=== PATIENT | female | born 1985 | race Caucasian/White ===

== ENCOUNTER → 2017-03-15 | Outpatient (CLI) | payer OTHER ==
[2015-08-31 17:23] VITALS: BP 103/71
--- NOTE | 2017-03-15 15:55 | RAD ---
3 views of the lumbar spine 03/15/2017 Indication: Low back pain Comparison study: None Findings: No evidence of acute fracture or alignment abnormality is identified. Vertebral body heights and disc spaces are relatively preserved. No evidence of spondylolysis or spondylolisthesis is identified. No acute paraspinal soft tissue abnormalities are identified. Impression: No radiographic evidence of acute fracture or alignment abnormality lumbar spine
== END | disposition home or self-care (01) ==
LOC: DXRADRC 15:36
PROVIDERS: ATTEND General Practice
DX: M54.42 Lumbago with sciatica, left side (principal)
CPT/HCPCS: 72100

== ENCOUNTER 2018-04-04 19:24 | Emergency (ER) | payer OTHER ==
[~2018-04-04] VITALS: Ht 177.8 cm; Wt 100.0 kg
[2018-04-04] MEDS ORDERED: SULF1TAB24 PO (20:03)
[2018-04-04 20:04] VITALS: BP 120/72
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
== END 2018-04-04 20:21 | disposition home or self-care (01) ==
LOC: ER 19:24
DX: S00.81XA Abrasion of other part of head, initial encounter (principal); W50.4XXA Accidental scratch by another person, initial encounter; Y93.89 Activity, other specified; Y92.89 Other specified places as the place of occurrence of the external cause; Y99.0 Civilian activity done for income or pay
CPT/HCPCS: 99283

== ENCOUNTER 2018-10-24 09:34 | Emergency (ER) | payer BC, OTHER ==
[~2018-10-24] VITALS: Ht 177.8 cm; Wt 83.0 kg
[~2018-10-24 09:34] MED LIST: SULF1TAB24 PO
[2018-10-24 09:40] VITALS: BP 107/72
[2018-10-24] MEDS ORDERED: HYDR25TA PO (10:02)
[2018-10-24] MEDS ORDERED: PRED50TA PO (10:02)
[2018-10-24] MEDS ORDERED: MELO7.5T29 PO (10:02)
--- NOTE | 2018-10-24 10:03 | PHYS DOC ---
Past History Past Medical History: No Pertinent History Past Surgical History: No Surgical History Smoking: Non-smoker Alcohol Use: None Drug Use: None Adult General Chief Complaint Chief Complaint: SKIN PROBLEM HPI HPI Patient is a 33-year-old female presents with bilateral hand painful nodules that started this morning prior to work. She works as a nurse in the hospital. She denies any new soaps lotions skin creams detergents or any other identifiable triggers for this. Denies any fever. Denies any oral lesions. Denies any lesions on her feet. Denies any trauma. Reports that they are painful but has not taken any medicine for the pain. Discomfort is mild to moderate in intensity.[] Review of Systems Review of Systems Constitutional: Denies fever or chills [] Eyes: Denies change in visual acuity, redness, or eye pain [] HENT: Denies nasal congestion or sore throat [] Respiratory: Denies cough or shortness of breath [] Cardiovascular: No chest pain or palpitations[] GI: Denies abdominal pain, nausea, vomiting, bloody stools or diarrhea [] : Denies dysuria or hematuria [] Musculoskeletal: Denies back pain or joint pain [] Integument: See history of present illness[] Neurologic: Denies headache, focal weakness or sensory changes [] Endocrine: Denies polyuria or polydipsia [] All other systems were reviewed and found to be within normal limits, except as documented in this note. Allergies Allergies Allergies Coded Allergies Type Severity Reaction Last Updated Verified No Known Drug Allergies 08/31/15 No Physical Exam Physical Exam Constitutional: Well developed, well nourished, no acute distress, non-toxic appearance. [] HENT: Normocephalic, atraumatic, bilateral external ears normal, oropharynx moist, no oral exudates, nose normal. [] Eyes: PERRLA, EOMI, conjunctiva normal, no discharge. [] Neck: Normal range of motion, no tenderness, supple, no stridor. [] Cardiovascular:Heart rate regular rhythm, no murmur [] Lungs & Thorax: Bilateral breath sounds clear to auscultation [] Abdomen: Not examined[] Skin: Warm, dry, multiple erythematous nodules on the palmar aspect of bilateral hands. There is no wrist involvement. No axillary lymphadenopathy. No oral lesions or feet lesions are noted. No petechiae. No ulcers.. [] Back: No tenderness, no CVA tenderness. [] Extremities: See skin exam. No tenderness, no cyanosis, no clubbing, ROM intact, no edema. [] Neurologic: Alert and oriented X 3, normal motor function, normal sensory function, no focal deficits noted. [] Psychologic: Affect normal, judgement normal, mood normal. [] EKG EKG [] Radiology/Procedures Radiology/Procedures [] Course & Med Decision Making Course & Med Decision Making Pertinent Labs and Imaging studies reviewed. (See chart for details) Medical decision making: There is no evidence of staph scalded skin syndrome, toxic epidermal necrolysis, Mckee-Justen syndrome, petechiae, or [place] spotted fever. This may be gevg-qgsw-ial-mouth disease without the additional sequela of oral or foot lesions and no fever. Will start outpatient management with anti-inflammatories, antihistamines as well as pain management.[] Dragon Disclaimer Dragon Disclaimer This electronic medical record was generated, in whole or in part, using a voice recognition dictation system. Departure Departure: Impression: Primary Impression: Rash of hands Disposition: HOME, SELF-CARE Condition: IMPROVED Referrals: TERESA DENNIS DO (PCP) Follow-up in 2 days Patient Instructions: Rash Additional Instructions: Follow-up with your regular doctor in 2 days. Return to the ER if worsening pa in, difficulty breathing, purulent drainage, fever of more than 101, or any other concerns. Scripts Prednisone (PREDNISONE) 50 Mg Tablet 1 TAB PO DAILY for INFLAMMATION, #5 TAB Prov: ZOIE WHITE DO 10/24/18 Meloxicam (MELOXICAM) 7.5 Mg Tablet 7.5 MG PO DAILY for PAIN, #20 TAB Prov: ZOIE WHITE DO 10/24/18 Hydroxyzine Hcl (HYDROXYZINE HCL) 25 Mg Tablet 1 TAB PO TID for allergic reaction, #30 TAB Prov: ZOIE WHITE DO 10/24/18 ZOIE WHITE DO October 24, 2018 10:03
== END 2018-10-24 10:10 | disposition home or self-care (01) ==
LOC: ER 09:34
DX: R21 Rash and other nonspecific skin eruption (principal)
CPT/HCPCS: 99283

== ENCOUNTER 2019-08-12 19:00 | Emergency (ER) | payer OTHER, BC ==
[~2019-08-12] VITALS: Ht 177.8 cm; Wt 81.0 kg
[~2019-08-12 19:00] MED LIST changes: +HYDR25TA PO; +MELO7.5T29 PO; +PRED50TA PO
[2019-08-12 19:15] VITALS: BP 101/62
--- NOTE | 2019-08-12 19:47 | PHYS DOC ---
Past History Past Medical History: No Pertinent History Past Surgical History: No Surgical History Smoking: Non-smoker Alcohol Use: None Drug Use: None Adult General Chief Complaint Chief Complaint: FEVER HPI HPI 34-year-old female presents with fever and sore throat. The patient has had symptoms for about 2 days. Today has been getting worse all day. Her temperatures but up to 100.6. She took ibuprofen a couple hours prior to arrival. She states it is very difficult to swallow liquids and solids. 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 She denies nausea, vomiting, diarrhea, cough. No risk factors for COVID 19 Review of Systems Review of Systems Constitutional: Denies fever or chills [] Eyes: Denies change in visual acuity, redness, or eye pain [] HENT: Sore throat [] Respiratory: Denies cough or shortness of breath [] Cardiovascular: No additional information not addressed in HPI [] GI: Denies abdominal pain, nausea, vomiting, bloody stools or diarrhea [] : Denies dysuria or hematuria [] Musculoskeletal: Denies back pain or joint pain [] Integument: Denies rash or skin lesions [] Neurologic: Denies headache, focal weakness or sensory changes [] Endocrine: Denies polyuria or polydipsia [] All other systems were reviewed and found to be within normal limits, except as documented in this note. Allergies Allergies Allergies Coded Allergies Type Severity Reaction Last Updated Verified No Known Drug Allergies 08/31/15 No Physical Exam Physical Exam Constitutional: Well developed, well nourished, no acute distress, non-toxic appearance. [] HENT: Normocephalic, atraumatic, bilateral external ears normal, oropharynx erythematous with minimal exudates, nose normal. [] Eyes: PERRLA, EOMI, conjunctiva normal, no discharge. [] Neck: Normal range of motion, no tenderness, supple, no stridor. [] Cardiovascular:Heart rate regular rhythm, no murmur [] Lungs & Thorax: Bilateral breath sounds clear to auscultation [] Abdomen: Bowel sounds normal, soft, no tenderness, no masses, no pulsatile masses. [] Skin: Warm, dry, no erythema, no rash. [] Back: No tenderness, no CVA tenderness. [] Extremities: No tenderness, no cyanosis, no clubbing, ROM intact, no edema. [] Neurologic: Alert and oriented X 3, normal motor function, normal sensory function, no focal deficits noted. [] Psychologic: Affect normal, judgement normal, mood normal. [] EKG EKG [] Radiology/Procedures Radiology/Procedures [] Course & Med Decision Making Course & Med Decision Making Pertinent Labs and Imaging studies reviewed. (See chart for details) The patient is positive for strep. I'll treat her with Bicillin injection as this is the option she would prefer. She is stable for discharge at this time. [] Dragon Disclaimer Dragon Disclaimer This electronic medical record was generated, in whole or in part, using a voice recognition dictation system. Departure Departure: Impression: Primary Impression: Strep pharyngitis Disposition: HOME, SELF-CARE Condition: STABLE Referrals: TERESA DENNIS DO (PCP) Patient Instructions: Strep Throat, [id number] CHRISSIE DURAN DO Aug 12, 2019 19:47
[2019-08-12] MEDS ORDERED: PENICILLIN G BENZATHINE LA 1,200,000 UNIT/2 ML DISP.SYRIN. IM ONE (20:00)
[2019-08-12 20:10] LABS: INFLUENZA A PATIENT NEGATIVE (NEGATIVE); INFLUENZA B PATIENT NEGATIVE (NEGATIVE)
== END 2019-08-12 20:18 | disposition home or self-care (01) ==
LOC: ER 19:00
DX: R50.9 Fever, unspecified (principal); J02.0 Streptococcal pharyngitis; B95.0 Streptococcus, group A, as the cause of diseases classified elsewhere
CPT/HCPCS: 87804; 87880; 96372; 99283; J0561

== ENCOUNTER → 2019-09-12 | Outpatient (CLI) | payer OTHER | END | disposition home or self-care (01) | LOC: LAB 11:00 | PROVIDERS: ATTEND Internal Medicine Cardiovascular Disease | DX: Z20.828 Contact with and (suspected) exposure to other viral communicable diseases (principal) | CPT/HCPCS: 87635 ==

== ENCOUNTER → 2019-12-13 | Outpatient (CLI) | payer OTHER | LOC: LAB 17:26 | PROVIDERS: ATTEND Internal Medicine Cardiovascular Disease | DX: Z20.828 Contact with and (suspected) exposure to other viral communicable diseases (principal) | CPT/HCPCS: 36415; U0003-CS ==

== ENCOUNTER → 2019-12-19 | Outpatient (CLI) | payer OTHER | LOC: LAB 12:13 | PROVIDERS: ATTEND Internal Medicine Cardiovascular Disease | DX: R05 Cough (principal); R06.03 Acute respiratory distress; Z20.828 Contact with and (suspected) exposure to other viral communicable diseases | CPT/HCPCS: 36415; U0003 ==

== ENCOUNTER → 2019-12-28 | Outpatient (CLI) | payer OTHER | END | disposition home or self-care (01) | LOC: LAB 06:16 | PROVIDERS: ATTEND Internal Medicine Cardiovascular Disease | DX: Z20.828 Contact with and (suspected) exposure to other viral communicable diseases (principal) | CPT/HCPCS: C9803; U0003; 36415 ==

== ENCOUNTER 2020-01-11 10:57 | Emergency (ER) | payer OTHER, BC ==
[~2020-01-11] VITALS: Ht 177.8 cm; Wt 81.0 kg
[2020-01-11 10:58] VITALS: BP 111/78
--- NOTE | 2020-01-11 11:22 | RAD ---
EXAM: CHEST 1 VIEW History: Chest pain COMPARISON: None available. TECHNIQUE: Single portable radiograph of the chest FINDINGS: The cardiac silhouette is unremarkable. Minimal bibasilar lung atelectasis or infiltrates. The costophrenic sulci are clear and well demarcated. IMPRESSION: Minimal bibasilar lung atelectasis or infiltrates. Electronically signed by: Mohsen Gimenez MD (01/11/2020 11:19 AM) [id number]
--- NOTE | 2020-01-11 11:34 | PHYS DOC ---
Past History Past Medical History: No Pertinent History Past Surgical History: No Surgical History Smoking: Non-smoker Alcohol Use: None Drug Use: None General Adult EDM: Chief Complaint: CHEST PAIN HPI: HPI: 34-year-old female past medical history is negative second for tobacco dependence, presents the ED with complaints of intermittent episodes of left- sided chest tightness and squeezing, lasting for less than 2 hours, for the past 2 weeks. Patient states that she gets jittery with this, sweaty and feels as if her heart rate fluctuates " like I'm running a marathon, sometimes it slows down." Father at 42 due to a massive heart attack. No family history of clotting disorders, connective tissue or aortic disease. Pt with no prior cardiac workup. Feels as if exertion and bring on the sxs. 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 Last menstrual period was 11 or 12 days ago. No associated syncope or cocaine or methamphetamine use. No recent URI, surgery/trauma or prolonged sitting. ROS: Denies associated fever, chills, cough, sore throat, dyspnea, orthopnea, hemoptysis, unilateral leg swelling, nausea, vomiting, diarrhea, abdominal pain, neck stiffness, headache, racing thoughts, anxiety or stress, lightheadedness, dizziness. Heart Score: HEART Score for Chest Pain: HEART Score for Chest Pain Response (Comments) Value History Slighlty/Non-Suspicious 0 ECG Normal 0 Age < 45 0 Risk Factors 1 or 2 Risk Factors 1 Troponin < Normal Limit 0 Total 1 Risk Factors: Risk Factors: DM, Current or recent (<one month) smoker, HTN, HLP, family history of CAD, obesity. Risk Scores: Score 0 - 3: 2.5% MACE over next 6 weeks - Discharge Home Score 4 - 6: 20.3% MACE over next 6 weeks - Admit for Clinical Observation Score 7 - 10: 72.7% MACE over next 6 weeks - Early Invasive Strategies Allergies: Allergies: Allergies Coded Allergies Type Severity Reaction Last Updated Verified No Known Drug Allergies 08/31/15 No Physical Exam: PE: Constitutional: Well developed, well nourished, no acute distress, non-toxic appearance. [] HENT: Normocephalic, atraumatic, bilateral external ears normal, oropharynx moist, no oral exudates, nose normal. [] Eyes: EOMI, conjunctiva normal, no discharge. [] Neck: Normal range of motion, no tenderness, supple, no stridor. [] Cardiovascular:Heart rate regular rhythm, no murmur [] Lungs & Thorax: Bilateral breath sounds clear to auscultation [] Abdomen: Bowel sounds normal, soft, no tenderness, no masses, no pulsatile masses. [] Skin: Warm, dry, no erythema, no rash. [] Back: No tenderness, no CVA tenderness. [] Extremities: No tenderness, no cyanosis, no clubbing, ROM intact, no edema. [] Neurologic: Alert and oriented X 3, normal motor function, normal sensory function, no focal deficits noted. [] Psychologic: Affect normal, judgement normal, mood normal, slightly anxious EKG: EKG: Sinus arrhythmia at 58 bpm, no axis deviation, normal intervals, T wave in version lead III, no ST elevations or ST depressions Radiology/Procedures: Radiology/Procedures: IMAGING REPORT Signed PATIENT: JOSH VENEGAS ACCOUNT: [id number] : 1985 LOCATION: ER AGE: 34 SEX: F EXAM STATUS: REG ER ORD. PHYSICIAN: RAYA RAGLAND DO REASON: cp PROCEDURE: PORTABLE CHEST 1V EXAM: CHEST 1 VIEW History: Chest pain COMPARISON: None available. TECHNIQUE: Single portable radiograph of the chest FINDINGS: The cardiac silhouette is unremarkable. Minimal bibasilar lung atelectasis or infiltrates. The costophrenic sulci are clear and well demarcated. IMPRESSION: Minimal bibasilar lung atelectasis or infiltrates. Electronically signed by: Mohsen Gimenez MD (01/11/2020 11:19 AM) [id number] DICTATED AND SIGNED BY: MOHSEN GIMENEZ MD DATE: 01/11/20 1119 CC: TERESA DENNIS DO; RAYA RAGLAND DO ~ Course & Med Decision Making: Course & Med Decision Making Pertinent Labs and Imaging studies reviewed. (See chart for details) Concern for chest pain and palpitations-sxs concerning for tachy/sunita syndrome vs sss vs svt, no h/o syncope or soa. Trop and d-dimer wnl. CXR with no acute process. Sinus arrhythmia on EKG. Patient asymptomatic during ED presentation. No associated syncope, confusion or dyspnea. Considered admission, pt perfers outpt management with strict ed return precautions for worsening cp, soa, confusion or syncope. Encouraged urgent outpatient follow-up with PMD and cardiology ([facility] Dr[facility]). Life-threatening processes were considered but are low suspicion at this time, given history and physical exam. All patient's questions were answered and pt was stable at time of discharge. Differential includes acute myocardial infarction, aortic dissection, congestive heart failure, esophageal injury including rupture, surgical abdomen, arrhythmia, cardiomyopathy, myocarditis, pericarditis, peptic ulcer disease, pneumomediastinum, pneumonia, pneumothorax, pulmonary embolus, unstable angina, rib fracture, contusion, pericardial tamponade or effusion, pulmonary contusion, HCOM, brugada, WPW, RVAD I spoken with the patient and her caregivers. I explained the patient's condition, diagnoses and treatment plan based on the information available to me at this time. I have answered the patient and her caregiver's questions and addressed any concerns. The patient and her caregivers have a good understanding of patient's diagnosis, condition and treatment plan as can be expected at this point. Vital signs have been stable. Patient's condition is stable and appropriate for discharge from the emergency department. Patient will pursue further outpatient evaluation with primary care physician or other designated or consulting physician as outlined in the discharge instructions. The patient and/or caregivers are agreeable to this plan of care and follow-up instructions have been explained in detail. The patient and/or caregivers have received these instructions in written form and have expressed an understanding of the discharge instructions. The patient and/or caregivers are aware that any significant change of condition or worsening of symptoms should prompt immediate return to this or the closest emergency department or call to 911. Shandra Disclaimer: Shandra Disclaimer: This electronic medical record was generated, in whole or in part, using a voice recognition dictation system. Departure Departure: Impression: Primary Impression: Chest pain Disposition: HOME/RESIDENCE PRIOR TO ADM Condition: STABLE Referrals: TERESA DENNIS DO (PCP) Patient Instructions: Chest Pain (Nonspecific), Sick Sinus Syndrome Additional Instructions: Walt Simms MD-cardiology [id number] [place] [address] Rosemarie Crow MD-family medicine [address] [facility], [facility], [place] [address] [place] [address] Justification of Admission: Justification of Admission: Justification of Admission Dx: N/A RAYA RAGLAND DO Jan 11, 2020 11:34
[2020-01-11 11:41] LABS: BASO % 1 % (0-3); EOS # 0.2 x10^3/uL (0.0-0.7); EOS % 4 % (0-3); HEMATOCRIT 40.4 % (36.0-47.0); HEMOGLOBIN 13.9 g/dL (12.0-15.5); LYMPH # 2.8 x10^3/uL (1.0-4.8); LYMPH % 46 % (24-48); MEAN CORPUSCULAR HEMOGLOBIN 32 pg (25-35); MEAN CORPUSCULAR HGB CONC 34 g/dL (31-37); MEAN CORPUSCULAR VOLUME 93 fL (79-100); MONO # 0.4 x10^3/uL (0.0-1.1); MONO % 6 % (0-9); NEUT # 2.6 x10^3uL (1.8-7.7); NEUT % 44 % (31-73); PLATELET COUNT 310 x10^3/uL (140-400); RED BLOOD COUNT 4.34 x10^6/uL (3.50-5.40); RED CELL DISTRIBUTION WIDTH 12.2 % (11.5-14.5); WHITE BLOOD COUNT 6.1 x10^3/uL (4.0-11.0)
[2020-01-11 11:50] LABS: CALCIUM 9.2 mg/dL (8.5-10.1); CREATININE 0.8 mg/dL (0.6-1.0); GFR 82.1; POTASSIUM 3.7 mmol/L (3.5-5.1)
[2020-01-11 11:51] LABS: PREG TEST PT QUAL NEGATIVE (NEG)
[2020-01-11 11:56] LABS: ALBUMIN 3.8 g/dL (3.4-5.0); TOTAL BILIRUBIN 0.2 mg/dL (0.2-1.0); TOTAL PROTEIN 7.6 g/dL (6.4-8.2)
--- NOTE | 2020-01-11 14:11 | EKG ---
[address] [address] Test Date: 2020-01-11 Test Time: 10:58:52 Pat Name: JOSH VENEGAS Department: Room: Gender: F [employer]: : 1985 Requested By: RAYA RAGLAND Order Number: [id number] Reading MD: Measurements Intervals [place] Rate: 58 P: 35 WA: 136 QRS: -1 QRSD: 88 T: 8 QT: 434 QTc: 430 Interpretive Statements SINUS ARRHYTHMIA LEFTWARD AXIS NO SPECIFIC ECG ABNORMALITIES RI6.02 No previous ECG available for comparison
== END 2020-01-11 12:32 | disposition home or self-care (01) ==
LOC: ER 10:57
DX: R07.89 Other chest pain (principal); F17.200 Nicotine dependence, unspecified, uncomplicated
CPT/HCPCS: 36415; 71045; 80053; 84484; 84703; 85025; 85379; 93005; 99285-25

== ENCOUNTER → 2020-01-31 | Outpatient (CLI) | payer OTHER ==
[2020-01-11 10:58] VITALS: BP 111/78
== END | disposition home or self-care (01) ==
LOC: LAB 06:25 → EEVIPCON 06:25
PROVIDERS: ATTEND Internal Medicine Cardiovascular Disease
DX: Z20.828 Contact with and (suspected) exposure to other viral communicable diseases (principal)
CPT/HCPCS: U0003-CS

== ENCOUNTER → 2020-02-13 | Outpatient (CLI) | payer OTHER | END | disposition home or self-care (01) | LOC: LAB 14:13 | PROVIDERS: ATTEND Internal Medicine Cardiovascular Disease | DX: Z20.828 Contact with and (suspected) exposure to other viral communicable diseases (principal) | CPT/HCPCS: U0003-CS ==

== ENCOUNTER → 2020-04-12 | Outpatient (CLI) | payer OTHER | LOC: LAB 09:27 | PROVIDERS: ATTEND Internal Medicine Cardiovascular Disease | DX: Z20.828 Contact with and (suspected) exposure to other viral communicable diseases (principal) | CPT/HCPCS: U0003 ==

== ENCOUNTER → 2020-04-26 | Outpatient (CLI) | payer OTHER | LOC: LAB 12:56 | PROVIDERS: ATTEND Internal Medicine Cardiovascular Disease | DX: R09.89 Other specified symptoms and signs involving the circulatory and respiratory systems (principal); R19.7 Diarrhea, unspecified; R53.81 Other malaise; R50.9 Fever, unspecified; Z20.828 Contact with and (suspected) exposure to other viral communicable diseases | CPT/HCPCS: U0003 ==

== ENCOUNTER → 2020-04-28 | Outpatient (CLI) | payer OTHER | LOC: LAB 17:18 | PROVIDERS: ATTEND Internal Medicine Cardiovascular Disease | DX: Z20.828 Contact with and (suspected) exposure to other viral communicable diseases (principal) | CPT/HCPCS: U0003 ==

== ENCOUNTER → 2020-05-05 | Outpatient (CLI) | payer OTHER | LOC: LAB 17:48 | PROVIDERS: ATTEND Internal Medicine Cardiovascular Disease | DX: Z20.828 Contact with and (suspected) exposure to other viral communicable diseases (principal) | CPT/HCPCS: U0003 ==

== ENCOUNTER → 2020-06-25 | Outpatient (CLI) | payer OTHER ==
[2020-06-25 14:24] LABS: BASO % 1 % (0-3); EOS # 0.2 x10^3/uL (0.0-0.7); EOS % 3 % (0-3); HEMATOCRIT 41.8 % (36.0-47.0); HEMOGLOBIN 13.9 g/dL (12.0-15.5); LYMPH # 2.8 x10^3/uL (1.0-4.8); LYMPH % 36 % (24-48); MEAN CORPUSCULAR HEMOGLOBIN 31 pg (25-35); MEAN CORPUSCULAR HGB CONC 33 g/dL (31-37); MEAN CORPUSCULAR VOLUME 94 fL (79-100); MONO # 0.3 x10^3/uL (0.0-1.1); MONO % 4 % (0-9); NEUT # 4.4 x10^3uL (1.8-7.7); NEUT % 57 % (31-73); PLATELET COUNT 333 x10^3/uL (140-400); RED BLOOD COUNT 4.44 x10^6/uL (3.50-5.40); RED CELL DISTRIBUTION WIDTH 12.8 % (11.5-14.5); WHITE BLOOD COUNT 7.8 x10^3/uL (4.0-11.0)
== END ==
LOC: LAB 13:54
PROVIDERS: ATTEND Obstetrics & Gynecology
DX: N92.0 Excessive and frequent menstruation with regular cycle (principal)
CPT/HCPCS: 36415; 84443; 85025

== ENCOUNTER → 2020-07-24 | Outpatient (CLI) | payer BC, OTHER ==
[2020-07-24 11:48] LABS: ALBUMIN 3.8 g/dL (3.4-5.0); CALCIUM 8.9 mg/dL (8.5-10.1); CREATININE 0.7 mg/dL (0.6-1.0); GFR 95.2; TOTAL BILIRUBIN 0.5 mg/dL (0.2-1.0); TOTAL PROTEIN 7.6 g/dL (6.4-8.2)
[2020-07-24 21:07] LABS: DHEA SO4 101.8 ug/dL (57.3-279.2); FSH 6.2 mIU/mL (.); PROGESTERONE 0.2 ng/mL (.); PROLACTIN 6.7 ng/mL (4.8-23.3)
[2020-07-25 03:07] LABS: HEMOGLOBIN A1C 5.5 % (4.8-5.6)
[2020-07-25 11:12] LABS: HOMOCYTSINE LEVEL 7.8 umol/L (0.0-14.5)
[2020-07-25 14:08] LABS: INSULIN LEVEL 12.6 uIU/mL (2.6-24.9)
[2020-07-26 12:08] LABS: ANA INTERP Negative (.)
== END ==
LOC: LAB 10:22
PROVIDERS: ATTEND Obstetrics & Gynecology
DX: N92.6 Irregular menstruation, unspecified (principal); N96 Recurrent pregnancy loss
CPT/HCPCS: 80053; 80061; 81241; 82627; 83001; 83002; 83036; 83090; 83525; 84144; 84146; 84402; 84403; 85384; 85730; 86038

== ENCOUNTER → 2020-08-05 | Outpatient (CLI) | payer OTHER ==
--- NOTE | 2020-08-05 16:31 | RAD ---
EXAM: Pelvic sonogram. HISTORY: Menorrhagia. Dysmenorrhea. TECHNIQUE: Transabdominal and transvaginal sonographic imaging of the pelvis was performed. COMPARISON: None. FINDINGS: The uterus measures 7.8 x 6.0 x 4.1 cm. The endometrial stripe measures 11 mm in thickness. The right ovary is normal in size and demonstrates normal blood flow. There is a 2.3 cm dominant rig ht ovarian follicle/follicular cyst. The left ovary is obscured due to bowel gas. No left adnexal mas s or cyst is seen. There are calcifications within the lower uterine segment. There is nabothian cyst within the cervix. There is a trace amount of fluid within the anterior cul-de-sac. IMPRESSION: 1. Obscured left ovary due to bowel gas. 2. 2.3 cm physiologic dominant right ovarian follicle/follicular cyst. 3. Normal endometrial stripe for the premenopausal status of patient. 4. Trace pelvic free fluid, within physiologic limits. Electronically signed by: Casi Louie MD (08/05/2020 4:29 PM) [id number]
== END ==
LOC: US 15:02
PROVIDERS: ATTEND Obstetrics & Gynecology
DX: N83.01 Follicular cyst of right ovary (principal); N88.8 Other specified noninflammatory disorders of cervix uteri; N92.0 Excessive and frequent menstruation with regular cycle; N92.6 Irregular menstruation, unspecified; N94.6 Dysmenorrhea, unspecified
CPT/HCPCS: 76830; 76856

== ENCOUNTER → 2020-09-10 | Outpatient (CLI) | payer OTHER | LOC: LAB 08:11 | PROVIDERS: ATTEND Obstetrics & Gynecology | DX: N92.6 Irregular menstruation, unspecified (principal) | CPT/HCPCS: 36415; 84144 ==

== ENCOUNTER → 2020-10-14 | Outpatient (CLI) | payer OTHER | LOC: LAB 08:12 | PROVIDERS: ATTEND Obstetrics & Gynecology | DX: N92.6 Irregular menstruation, unspecified (principal) | CPT/HCPCS: 36415; 84144 ==

== ENCOUNTER → 2020-12-19 | Outpatient (CLI) | payer OTHER ==
--- NOTE | 2020-12-20 20:54 | NUR ---
Negative test results left on voicemail identified with patient's name.
== END ==
LOC: LAB 10:40
PROVIDERS: ATTEND Internal Medicine Cardiovascular Disease
DX: Z20.822 Contact with and (suspected) exposure to COVID-19 (principal)
CPT/HCPCS: U0005

== ENCOUNTER → 2020-12-28 | Outpatient (CLI) | payer OTHER | LOC: LAB 09:00 | PROVIDERS: ATTEND Internal Medicine Cardiovascular Disease | DX: Z20.822 Contact with and (suspected) exposure to COVID-19 (principal) | CPT/HCPCS: C9803; U0003 ==

== ENCOUNTER → 2021-01-13 | Outpatient (CLI) | payer OTHER | LOC: LAB 07:05 | PROVIDERS: ATTEND Internal Medicine Cardiovascular Disease | DX: Z20.822 Contact with and (suspected) exposure to COVID-19 (principal) | CPT/HCPCS: U0003 ==

== ENCOUNTER → 2021-01-20 | Outpatient (CLI) | payer OTHER | LOC: LAB 06:56 | PROVIDERS: ATTEND Internal Medicine Cardiovascular Disease | DX: Z20.822 Contact with and (suspected) exposure to COVID-19 (principal) | CPT/HCPCS: U0003 ==

== ENCOUNTER → 2021-01-24 | Outpatient (CLI) | payer OTHER ==
--- NOTE | 2021-01-24 15:15 | RAD ---
EXAM: Chest, 2 views. HISTORY: Chest wall pain. COMPARISON: None. FINDINGS: 2 views of the chest are obtained. There is no infiltrate, pleural effusion or pneumothorax . The heart is normal in size. IMPRESSION: No acute pulmonary finding. Electronically signed by: Casi Louie MD (01/24/2021 3:13 PM) [id number]
== END ==
LOC: DXRAD 14:48
PROVIDERS: ATTEND Physician Assistant Medical
DX: R07.89 Other chest pain (principal)
CPT/HCPCS: 71046

== ENCOUNTER → 2021-01-27 | Outpatient (CLI) | payer OTHER | LOC: LAB 07:01 | PROVIDERS: ATTEND Internal Medicine Cardiovascular Disease | DX: Z20.822 Contact with and (suspected) exposure to COVID-19 (principal) | CPT/HCPCS: U0003 ==

== ENCOUNTER → 2021-02-04 | Outpatient (CLI) | payer OTHER | LOC: LAB 09:30 | PROVIDERS: ATTEND Internal Medicine Cardiovascular Disease | DX: Z20.822 Contact with and (suspected) exposure to COVID-19 (principal) | CPT/HCPCS: C9803; U0003 ==

== ENCOUNTER 2021-02-10 13:02 | Emergency (ER) | payer OTHER ==
[~2021-02-10] VITALS: Ht 177.8 cm; Wt 108.0 kg
--- NOTE | 2021-02-10 13:06 | PHYS DOC ---
Past History Past Medical History: No Pertinent History Past Surgical History: No Surgical History Smoking: Non-smoker Alcohol Use: None Drug Use: None Adult General HPI HPI Patient is a 35-year-old female presenting for back pain. This was suffered while at work here at [facility] [employer] without any known inciting event, trauma, mechanism of injury or exposure. She has history of back issues, has been seeing her primary care physician in outpatient setting for various lower back and other musculoskeletal complaints. States she has been taking Flexeril at night and Celebrex and tramadol daily for past 2 weeks with last use of Celebrex and tramadol being 1 hour ago. Reports shortly after taking said medications, she started developing lower left-sided lower back pain. Reports it is focal and nonradiating, denies any red flag signs or symptoms such as saddle anesthesia, bladder or bowel incontinence, changes in motor or sensory or neuro function Review of Systems Review of Systems Fourteen body systems of review of systems have been reviewed. See HPI for pertinent positives and negative responses, other brown all other systems are negative, non-pertinent or non-contributory Allergies Allergies Allergies Coded Allergies Type Severity Reaction Last Updated Verified No Known Drug Allergies 08/31/15 No Physical Exam Physical Exam Constitutional: Well developed, well nourished, tearful and in hunched over position as it alleviates her pain HENT: Normocephalic, atraumatic, bilateral external ears normal, oropharynx moist, no oral exudates, nose normal. Eyes: PERRLA, EOMI, conjunctiva normal, no discharge. Neck: Normal range of motion, no tenderness, supple, no stridor. Cardiovascular: Heart rate regular, sinus rhythm, no murmurs rubs or gallops Lungs & Thorax: Bilateral breath sounds clear to auscultation Abdomen: Bowel sounds normal, soft, no tenderness, no masses, no pulsatile masses. Nonsurgical abdomen, no peritoneal signs Skin: Warm, dry, no erythema, no rash. Back: No midline tenderness or stepoffs, no CVA tenderness. Pelvis stable. Point of maximum pain at left lower lumbar region in area of deep paraspinal muscles Extremities: No midline tenderness or step-offs, no cyanosis, no clubbing, ROM intact, no edema. Neurologic: Alert and oriented X 3, normal motor & sensory function, no focal deficits noted. No saddle anesthesia Psychologic: Tearful affect, anxious mood Current Patient Data Vital Signs Vital Signs Date Time Temp Pulse Resp B/P (MAP) Pulse Ox O2 Delivery O2 Flow Rate FiO2 02/10/21 13:13 99.9 107 18 152/97 (115) 98 Vital Signs Date Time Temp Pulse Resp B/P (MAP) Pulse Ox O2 Delivery O2 Flow Rate FiO2 02/10/21 13:13 99.9 107 18 152/97 (115) 98 EKG EKG [] Radiology/Procedures Radiology/Procedures [] Heart Score C/O Chest Pain: No Risk Factors: Risk Factors: DM, Current or recent (<one month) smoker, HTN, HLP, family history of CAD, obesity. Risk Scores: Risk Factors: DM, Current or recent (<one month) smoker, HTN, HLP, family history of CAD, obesity. Course & Med Decision Making Course & Med Decision Making ABCs, history and physical examination non-concerning. There are no red flag signs of back pain present. I have low suspicion for malignancy/mets, acute Spinal Fracture, Vertebral Osteomyelitis, Epidural Abscess, Infected or Obstructing Kidney Stone. Their presentation appears most likely to be secondary to non-emergent musculoskeletal etiology vs non-emergent disc herniation. ED Workup: Defer imaging and labwork for outpatient follow up at this time. IM orphenadrine and morphine with p.o. Tylenol given with improvement in symptoms. Disposition: Discharge. Patient has previously prescribed Flexeril and tramadol at home. Strict return precautions discussed with patient with full und erstanding. Advised patient to follow up promptly with primary care provider Shandra Disclaimer Shandra Disclaimer This electronic medical record was generated, in whole or in part, using a voice recognition dictation system. Departure Departure: Impression: Primary Impression: Lower back pain Disposition: HOME / SELF CARE / HOMELESS Condition: STABLE Referrals: RAYA MARTINEZ (PCP) Additional Instructions: You were evaluated in the Emergency Department today for back pain. Your evaluation suggests no acute abnormalities which require further intervention at this time. Your pain is most likely due to to a musculoskeletal cause that should improve with supportive care. - Move around as tolerated but avoiding heavy lifting. ``Bed rest is not recommended nor is it the best treatment for low back pain. - Medications will help control your discomfort: - -Ibuprofen (800 mg every 8 hours for pain) with food. - -Tylenol - Do not drink alcohol, drive a car, operate machinery, or get up on ladders or heights when taking any prescribed pain medications. - Do not drive home if you received prescribed pain medications here in the ED. Return to the ED immediately if you develop any of the following problems: - Leaking urine or difficulty urinating; - Inability to control your bowels; - New numbness or weakness in your legs or numbness between your legs; - Inability to walk - Fever VERONICA BURGER DO Feb 10, 2021 13:06
[2021-02-10] MEDS ORDERED: ORPHENADRINE CITRATE 60 MG/2 ML VIAL. IM ONE (13:30)
[2021-02-10] MEDS ORDERED: MORPHINE SULFATE 10 MG/ML SYRINGE. SQ ONE (13:30)
[2021-02-10] MEDS ORDERED: ACETAMINOPHEN 500 MG TABLET PO ONE (13:30)
[2021-02-10 14:28] VITALS: BP 133/90
== END 2021-02-10 14:45 | disposition home or self-care (01) ==
LOC: ER 13:02
DX: M54.5 Low back pain (principal)
CPT/HCPCS: 96372; 99284; J2270; J2360

== ENCOUNTER → 2021-02-18 | Outpatient (CLI) | payer OTHER ==
[2021-02-10 14:28] VITALS: BP 133/90
== END ==
LOC: LAB 10:00
PROVIDERS: ATTEND Internal Medicine Cardiovascular Disease
DX: Z20.822 Contact with and (suspected) exposure to COVID-19 (principal)
CPT/HCPCS: C9803; U0003

== ENCOUNTER → 2021-02-25 | Outpatient (CLI) | payer OTHER ==
[2021-02-10 14:28] VITALS: BP 133/90
== END ==
LOC: LAB 15:30
PROVIDERS: ATTEND Internal Medicine Cardiovascular Disease
DX: Z20.822 Contact with and (suspected) exposure to COVID-19 (principal)
CPT/HCPCS: C9803; U0003

== ENCOUNTER → 2021-03-04 | Outpatient (CLI) | payer OTHER ==
[2021-02-10 14:28] VITALS: BP 133/90
== END ==
LOC: LAB 07:00
PROVIDERS: ATTEND Internal Medicine Cardiovascular Disease
DX: Z20.822 Contact with and (suspected) exposure to COVID-19 (principal)
CPT/HCPCS: U0003

== ENCOUNTER → 2021-03-12 | Outpatient (CLI) | payer OTHER ==
[2021-02-10 14:28] VITALS: BP 133/90
== END ==
LOC: LAB 07:00
PROVIDERS: ATTEND Internal Medicine Cardiovascular Disease
DX: Z20.822 Contact with and (suspected) exposure to COVID-19 (principal)
CPT/HCPCS: U0003

== ENCOUNTER → 2021-03-18 | Outpatient (CLI) | payer OTHER | LOC: LAB 08:00 | PROVIDERS: ATTEND Internal Medicine Cardiovascular Disease | DX: Z20.822 Contact with and (suspected) exposure to COVID-19 (principal) | CPT/HCPCS: C9803; U0003 ==

== ENCOUNTER → 2021-03-25 | Outpatient (CLI) | payer OTHER | LOC: LAB 09:55 | PROVIDERS: ATTEND Internal Medicine Cardiovascular Disease | DX: Z20.822 Contact with and (suspected) exposure to COVID-19 (principal) | CPT/HCPCS: C9803; U0003 ==

== ENCOUNTER → 2021-04-02 | Outpatient (CLI) | payer OTHER | LOC: LAB 09:54 | PROVIDERS: ATTEND Internal Medicine Cardiovascular Disease | DX: Z20.822 Contact with and (suspected) exposure to COVID-19 (principal) | CPT/HCPCS: U0003 ==

== ENCOUNTER → 2021-04-09 | Outpatient (CLI) | payer OTHER | LOC: LAB 08:00 | PROVIDERS: ATTEND Internal Medicine Cardiovascular Disease | DX: Z20.822 Contact with and (suspected) exposure to COVID-19 (principal) | CPT/HCPCS: U0003 ==

== ENCOUNTER → 2021-04-16 | Outpatient (CLI) | payer OTHER | LOC: LAB 07:00 | PROVIDERS: ATTEND Internal Medicine Cardiovascular Disease | DX: Z20.822 Contact with and (suspected) exposure to COVID-19 (principal) | CPT/HCPCS: U0003 ==

== ENCOUNTER → 2021-04-23 | Outpatient (CLI) | payer OTHER | LOC: LAB 07:00 | PROVIDERS: ATTEND Internal Medicine Cardiovascular Disease | DX: Z20.822 Contact with and (suspected) exposure to COVID-19 (principal) | CPT/HCPCS: U0003 ==

== ENCOUNTER → 2021-04-30 | Outpatient (CLI) | payer OTHER | LOC: LAB 07:30 | PROVIDERS: ATTEND Internal Medicine Cardiovascular Disease | DX: Z20.822 Contact with and (suspected) exposure to COVID-19 (principal) | CPT/HCPCS: C9803; U0003 ==

== ENCOUNTER → 2021-05-06 | Outpatient (CLI) | payer OTHER | LOC: LAB 07:00 | PROVIDERS: ATTEND Internal Medicine Cardiovascular Disease | DX: Z20.822 Contact with and (suspected) exposure to COVID-19 (principal) | CPT/HCPCS: C9803; U0003 ==

== ENCOUNTER → 2021-06-16 | Outpatient (CLI) | payer OTHER | LOC: LAB 08:00 | PROVIDERS: ATTEND Internal Medicine Cardiovascular Disease | DX: Z20.822 Contact with and (suspected) exposure to COVID-19 (principal) | CPT/HCPCS: U0003 ==

== ENCOUNTER → 2021-06-23 | Outpatient (CLI) | payer OTHER | LOC: LAB 07:00 | PROVIDERS: ATTEND Internal Medicine Cardiovascular Disease | DX: Z20.822 Contact with and (suspected) exposure to COVID-19 (principal) | CPT/HCPCS: U0003 ==

== ENCOUNTER → 2021-06-30 | Outpatient (CLI) | payer OTHER | LOC: LAB 07:00 | PROVIDERS: ATTEND Internal Medicine Cardiovascular Disease | DX: Z20.822 Contact with and (suspected) exposure to COVID-19 (principal) | CPT/HCPCS: U0003 ==